=== PATIENT | female | born 1990 | race Caucasian/White ===

== ENCOUNTER 2017-06-29 02:35 | Outpatient (CLI) | payer BC ==
[~2017-06-29] VITALS: Ht 152.4 cm; Wt 67.3 kg
[2017-06-29 02:51] VITALS: BP 124/76
== END 2017-06-29 04:08 | disposition home or self-care (01) ==
LOC: LDRP-OP 02:35 → 2WEST 02:36
DX: O26.892 Other specified pregnancy related conditions, second trimester (principal); Z3A.23 23 weeks gestation of pregnancy
CPT/HCPCS: G0378